=== PATIENT | male | born 1960 | race Caucasian/White ===

== ENCOUNTER 2022-07-18 12:11 | Outpatient (CLI) | payer BC, SELFPAY ==
[2022-07-18 10:01] LABS: Albumin* 4.9 g/dL (3.3-5.0)
[2022-07-18 10:02] LABS: Chloride* 105 mmol/L (96-114); Potassium* 4.5 mmol/L (3.6-5.1); Sodium* 139 mmol/L (135-149)
[2022-07-18 10:04] LABS: Alkaline Phosphatase* 92 U/L (40-150); Aspartate Amino Transferase* 41 U/L (12-35); Carbon Dioxide* 24 mmol/L (20-32); Cholesterol* 218 mg/dL (90-199); Creatinine* 0.8 mg/dL (0.5-1.5); Estimated Glomerular Filt Rate 99 ml/min
[2022-07-18 10:05] LABS: Alanine Aminotransferase* 36 U/L (4-50); Blood Urea Nitrogen* 16 mg/dL (7-30); Calcium* 9.2 mg/dL (8.4-10.6); Glucose* 98 mg/dL (60-115); HDL Cholesterol* 44 mg/dL (>=40); LDL Cholesterol Calculated 155 mg/dL (<100); Triglycerides* 94 mg/dL (40-149)
[2022-07-18 10:34] LABS: PSA Screen* 3.29 ng/mL (0.10-4.00)
== END 2022-07-18 12:12 | disposition home or self-care (01) ==
PROVIDERS: PCP Internal Medicine; Visit Provider Internal Medicine
DX: Z13.6 Encounter for screening for cardiovascular disorders (principal); Z12.5 Encounter for screening for malignant neoplasm of prostate
CPT/HCPCS: 80053; 80061; 84153

== ENCOUNTER 2023-10-04 09:00 | Outpatient (CLI) | payer OTHER, SELFPAY ==
--- OUTSIDE RECORDS SUMMARY | 2023-10-07 07:19 | XMS_ITS | Clinical Summary ---
Author Name Unknown Organization [facility] Address [place], [place] [address] Care Team Providers Care Opal Polisher Name Role Phone Unknown, Doctor Primary Care Provider Unavailabl e Allergies No known active allergies Medications Medication Sig Dispensed Refills Start Date End Date Status omeprazole (PRILOSEC) 20 mg Delayed-Release capsule TAKE 1 CAPSULE BY MOUTH TWICE DAILY FOR GERD 0 06/06/2023 Active NIFEdipine ER (ADALAT CC) 30 mg extended-Release tablet Take 30 mg by mouth. 0 06/17/2023 Active predniSONE (DELTASONE) 20 mg tablet Take 40 mg by mouth once daily. 0 07/26/2023 Active Encounters Date Type Department Care Team Description 08/09/2023 4:35 PM CUTTER AND EDGE TRIMMER Office Visit [facility] [address] [place] [address] aFustino Lakhani MD Employment Physical (63 year old male) 08/09/2023 Travel from Last 3 Months Immunizations Name Administration Dates Next Due Tdap 11/29/2008 Social History Tobacco Use Types Packs/Day Years Used Date Smoking Tobacco: Former Smokeless Tobacco: Former Tobacco Cessation:Counseling Given: Yes Alcohol Use Standard Drinks/Week Comments Not Currently 0 (1 standard drink = 0.6 oz pur e alcohol) Social Connections Answer Date Recorded Frequency of Communication with Friends and Fami ly Not on file 08/09/2023 Sex and Gender Information Value Date Recorded Sex Assigned at Not on file Gender Identity Not on file Sexual Orientation Not on file Obstetrics History Last Filed Vital Signs Vital Sign Reading Time Taken Comments Blood Pressure 137/78 08/09/2023 4:55 PM CUTTER AND EDGE TRIMMER Pulse 88 08/09/2023 4:46 PM CUTTER AND EDGE TRIMMER Temperature 36.3 ??C (97.4 ??F) 11/29/2008 1 1:53 AM CDT Respiratory Rate - - Oxygen Saturation 98% 08/09/2023 4:46 PM CUTTER AND EDGE TRIMMER Inhaled Oxygen Concentration - - Weight 94.8 kg (208 lb 14.4 oz) 08/09/2023 4:46 PM CUTTER AND EDGE TRIMMER Height 169 cm (5' 6.54) 08/09/2023 4:46 PM CUTTER AND EDGE TRIMMER Body Mass Index 33.18 08/09/2023 4:46 PM CUTTER AND EDGE TRIMMER Plan of Treatment Health Maintenance Due Date Last Done Comments COVID-19 vaccine series (#1) 1959 Depression screening for age 12+ 1971 HIV for age 15-65 1974 Hepatitis C screening for ag e 18-79 1977 Colonoscopy through age 75 2004 Lipids for age 45-75 2004 Zoster (shingles) series for age 50+ (1 of 2) 2009 Tetanus booster 11/29/2018 11/29/2008 Influenza for age 50-64 05/19/2023 BMI (ht and wt on same day) for age 18+ 08/09/2024 08/09/2023 Tdap Completed 11/29/2008 Pneumococcal series for age 6-64 Aged Out No longer eligible based on patient's age to complete this topic Procedures Procedure Name Priority Date/Time Associated Diagnosis Comments [facility] UA DIP Routine 08/09/2023 4:40 PM CUTTER AND EDGE TRIMMER Encounter for examination required by Department of Transportation (DOT) from Last 3 Months Results * [facility] UA DIP (08/09/2023 4:40 PM CUTTER AND EDGE TRIMMER) COLOR Yellow Yellow Color 08/09/2023 4:53 PM CUTTER AND EDGE TRIMMER [facility] CLARITY Clear Clear Clarity 08/09/2023 4:53 PM CUTTER AND EDGE TRIMMER [facility] SPECIFIC GRAVITY,URINE 1.015 1.010, 1.015, 1.020, 1.025 08/09/2023 4:53 PM CUTTER AND EDGE TRIMMER [facility] PH,URINE 5.5 6.0, 7.0, 8.0, 5.5, 6.5, 7.5, 8.5 08/09/2023 4:53 PM CUTTER AND EDGE TRIMMER [facility] UROBILINOGEN, QUALITATIVE Normal Normal EU/dl 08/09/2023 4:53 PM CUTTER AND EDGE TRIMMER [facility] PROTEIN, URINE Negative Negative mg/dL 08/09/2023 4:53 PM CUTTER AND EDGE TRIMMER [facility] GLUCOSE, URINE Negative Negative mg/dL 08/09/2023 4:53 PM CUTTER AND EDGE TRIMMER [facility] KETONES,URINE Negative Negative mg/dL 08/09/2023 4:53 PM CUTTER AND EDGE TRIMMER [facility] BILIRUBIN,URI NE Negative Negative 08/09/2023 4:53 PM CUTTER AND EDGE TRIMMER [facility] OCCULT BLOOD,URINE Negative Negative 08/09/2023 4:53 PM CUTTER AND EDGE TRIMMER [facility] NITRITE Negative Negative 08/09/2023 4:53 PM CUTTER AND EDGE TRIMMER [facility] LEUKOCYTE ESTERASE Negative Negative 08/09/2023 4:53 PM CUTTER AND EDGE TRIMMER [facility] Urine URINE SPECIMEN / Unknown Non-Blood / Unknown 08/09/2023 4:40 PM CUTTER AND EDGE TRIMMER 08/09/2023 4:48 PM CUTTER AND EDGE TRIMMER Faustino Lakhani MD LABORATORY [facility] [address] [place] [address], from Last 3 Months Care Teams Opal Polisher Relationship Specialty Start Date End Date Unknown, Doctor . PCP - General 03/17/06
--- OUTSIDE RECORDS SUMMARY | 2023-10-07 07:19 | XMS_ITS | Clinical Summary ---
Author Name Unknown Organization [facility] Address [address] [place] [address] Care Team Providers Care Chest Pain Coordinator Name Role Phone Donovan Mohan MD Primary Care Provider [phone]- [phone] Source Comments You are receiving this document as you are listed as the primary care provider,follow-up provider, or the patient has been referred to you for consultation.This is in compliance with the Medicare and[facility] EHR Incentive Program,which states Providers who transition their patient to another setting of careor provider of care or refers their patient to another provider of care shouldprovide summary care record for each transition of care or referral. [facility] Allergies No known active allergies Medications Medication Sig Dispensed Refills Start Date End Date Status amLODIPine (NORVASC) 5 MG tablet Take 5 mg by mouth daily. 0 06/17/2021 Active omeprazole (PRILOSEC) 20 MG capsule Take 20 mg by mouth two times a day. 0 06/17/2021 Active Active Problems No known active problems Social History Tobacco Use Types Packs/Day Years Used Date Smoking Tobacco: Never Assessed Sex and Gender Information Value Date Recorded Sex Assigned at Not on file Gender Identity Not on file Sexual Orientation Not on file Plan of Treatment Health Maintenance Due Date Last Done Comments Colon Cancer Screening Plan Due 1959 Hep C Screening (Preventive Services) 1959 PSA Screening Discussion 1959 COVID-19 Vaccine (#1) 1959 HIV Screening (Preventive Services) 1975 Adult Preventive Visit 1977 Cholesterol 1994 Zoster/Shingles (1 of 2) 2009 DTaP/Tdap/Td (2 - Tdap) 11/29/2018 11/29/2008 Influenza (#1) 2023 HepA Aged Out No longer eligi ble based on patient's age to complete this topic HepB Aged Out No longer eligi ble based on patient's age to complete this topic Hib Aged Out No longer eligi ble based on patient's age to complete this topic IPV (Polio) Aged Out No longer eligi ble based on patient's age to complete this topic MCV4 Aged Out No longer eligi ble based on patient's age to complete this topic Pneumococcal Aged Out No longer eligi ble based on patient's age to complete this topic Care Teams Chest Pain Coordinator Relationship Specialty Start Date End Date Donovan Mohan MD [address] [place] [address] PCP - General 06/24/21
== END 2023-10-04 09:01 | disposition home or self-care (01) ==
LOC: NFLDREF 10-07 07:17
PROVIDERS: PCP Internal Medicine; Referring Provider Internal Medicine; Visit Provider Internal Medicine
DX: Z00.00 Encounter for general adult medical examination without abnormal findings (principal); M54.12 Radiculopathy, cervical region; I10 Essential (primary) hypertension; Z13.220 Encounter for screening for lipoid disorders; Z12.5 Encounter for screening for malignant neoplasm of prostate; Z13.6 Encounter for screening for cardiovascular disorders
CPT/HCPCS: 80053; 80061; G0103

== ENCOUNTER 2023-10-18 07:55 | Outpatient (CLI) | payer OTHER, SELFPAY ==
--- OUTSIDE RECORDS SUMMARY | 2023-10-18 08:03 | XMS_ITS | Clinical Summary ---
Author Name Unknown Organization [facility] Address [place], [place] [address] Care Team Providers Care Pony Trimmer Name Role Phone Unknown, Doctor Primary Care [...] Department Care Team Description 08/09/2023 4:35 PM RN ACUTE CARE Office Visit [facility] [address] [place] [address] Faustino Lakhani MD Employment Physical (63 year old [...] Comments Blood Pressure 137/78 08/09/2023 4:55 PM RN ACUTE CARE Pulse 88 08/09/2023 4:46 PM RN ACUTE CARE Temperature 36.3 ??C (97.4 ??F) 11/29/2008 1 1:53 AM CDT Respiratory Rate - - Oxygen Saturation 98% 08/09/2023 4:46 PM RN ACUTE CARE Inhaled Oxygen Concentration - - Weight 94.8 kg (208 lb 14.4 oz) 08/09/2023 4:46 PM RN ACUTE CARE Height 169 cm (5' 6.54) 08/09/2023 4:46 PM RN ACUTE CARE Body Mass Index 33.18 08/09/2023 4:46 PM RN ACUTE CARE Plan of Treatment Health Maintenance Due Date [...] DOT UA DIP Routine 08/09/2023 4:40 PM RN ACUTE CARE Encounter for examination required by Department of Transportation (DOT) from Last 3 Months Results * [facility] UA DIP (08/09/2023 4:40 PM RN ACUTE CARE) COLOR Yellow Yellow Color 08/09/2023 4:53 PM RN ACUTE CARE [facility] CLARITY Clear Clear Clarity 08/09/2023 4:53 PM RN ACUTE CARE [facility] SPECIFIC GRAVITY,URINE 1.015 1.010, 1.015, 1.020, 1.025 08/09/2023 4:53 PM RN ACUTE CARE [facility] PH,URINE 5.5 6.0, 7.0, 8.0, 5.5, 6.5, 7.5, 8.5 08/09/2023 4:53 PM RN ACUTE CARE [facility] UROBILINOGEN, QUALITATIVE Normal Normal EU/dl 08/09/2023 4:53 PM RN ACUTE CARE [facility] PROTEIN, URINE Negative Negative mg/dL 08/09/2023 4:53 PM RN ACUTE CARE [facility] GLUCOSE, URINE Negative Negative mg/dL 08/09/2023 4:53 PM RN ACUTE CARE [facility] KETONES,URINE Negative Negative mg/dL 08/09/2023 4:53 PM RN ACUTE CARE [facility] BILIRUBIN,URI NE Negative Negative 08/09/2023 4:53 PM RN ACUTE CARE [facility] OCCULT BLOOD,URINE Negative Negative 08/09/2023 4:53 PM RN ACUTE CARE [facility] NITRITE Negative Negative 08/09/2023 4:53 PM RN ACUTE CARE [facility] LEUKOCYTE ESTERASE Negative Negative 08/09/2023 4:53 PM RN ACUTE CARE [facility] Urine URINE SPECIMEN / Unknown Non-Blood / Unknown 08/09/2023 4:40 PM RN ACUTE CARE 08/09/2023 4:48 PM RN ACUTE CARE Faustino Lakhani MD LABORATORY [facility] [address] [place] [address], from Last 3 Months Care Teams Pony Trimmer Relationship Specialty Start Date End Date Unknown, Doctor . PCP - General 03/17/06
--- OUTSIDE RECORDS SUMMARY | 2023-10-18 08:03 | XMS_ITS | Clinical Summary ---
Author Name Unknown Organization [facility] Address [address] [place] [address] Care Team Providers Care Contact Lens Polisher Name Role Phone Donovan Mohan MD Primary Care Provider [phone]- [phone] Source Comments You are receiving this document as you are listed as the primary care provider,follow-up provider, or the patient has been referred to you for consultation.This is in compliance with the Medicare and[facility] EHR Incentive Program,which states Providers who transition [...] age to complete this topic Care Teams Contact Lens Polisher Relationship Specialty Start Date End Date Donovan Mohan MD [address] [place] [address] PCP - General 06/24/21
--- NOTE | 2023-10-18 08:15 | CRLHL7_ITS ---
For Patients: As a result of the Century Cures Act, medical imaging exams and procedure reports are released immediately into your electronic medical record. You may view this report before your referring provider. If you have questions, please contact your health care provider. INDICATION : Cervical radiculopathy. TECHNIQUE : Cervical spine MRI without contrast. The following sequences were obtained: Sagittal T1 and T2 weighted sequences. Axial T2-weighted and gradient sequences. COMPARISON: COMPARISONNeck CT from 03/06/2011. FINDINGS: Normal cervical lordotic curve. No recent compression fracture or marrow replacing process. Posterior fossa structures are normal. Cervical cord signal is normal. No extraspinal soft tissue abnormalities. Discs/Endplates: Cervical and upper thoracic disc heights are maintained. Findings at individual levels as follows: Craniocervical junction: Alignment is maintained. C2-C3: Left uncovertebral arthrosis contributes to mild left neural foraminal stenosis. No right neural foraminal stenosis or spinal canal stenosis. C3-C4: Shallow disc osteophyte complex flattens the thecal sac with overall mild spinal canal stenosis. Bilateral uncovertebral arthrosis with moderate bilateral neural foraminal stenosis. C4-C5: Shallow disc osteophyte complex flattens the thecal sac with overall mild spinal canal stenosis. Bilateral uncovertebral arthrosis with moderate to moderately advanced left neural foraminal stenosis. Impingement of the exiting left C5 nerve root. C5-C6: Shallow disc osteophyte complex abuts the ventral cord and contributes to mild spinal canal stenosis. Bilateral uncovertebral arthrosis and left facet arthrosis with moderate bilateral neural foraminal stenosis, greater on the left. C6-C7: A left central protrusion minimally flattens the ventral cord. Mild spinal canal stenosis. Bilateral uncovertebral arthrosis with mild left and [id number] right neural foraminal stenosis. C7-T1: Tiny central protrusion flattens the thecal sac. No spinal canal or neural foraminal stenosis. T1-2 and T2-3: No spinal canal or neural foraminal stenosis. IMPRESSION: 1. Multilevel cervical neural foraminal stenosis, moderately advanced at C4-5 on the left, moderate at C3-4 bilaterally/C5-6 bilaterally, and low-grade elsewhere. Impingement of the left C5 nerve root. 2. No high-grade spinal canal stenosis. Multilevel mild spinal canal narrowing at C3-4, C4-5, C5-6 and C6-7. Minimal ventral cord flattening at the C6-7 level. 3. Cervical cord signal is normal. No intradural pathology. Dictated by Bogdan Logan MD @ 10/18/2023 11:41:35 AM (Electronically Signed)
== END 2023-10-18 07:56 | disposition home or self-care (01) ==
LOC: MRI 07:56
PROVIDERS: PCP Internal Medicine; Visit Provider Internal Medicine
DX: M54.12 Radiculopathy, cervical region (principal); M48.02 Spinal stenosis, cervical region
CPT/HCPCS: 72141

== ENCOUNTER 2025-01-28 08:53 | Outpatient (CLI) | payer OTHER, SELFPAY | END 2025-01-28 08:54 | disposition home or self-care (01) | PROVIDERS: PCP Internal Medicine; Visit Provider Internal Medicine | DX: I10 Essential (primary) hypertension (principal); Z12.5 Encounter for screening for malignant neoplasm of prostate; Z13.6 Encounter for screening for cardiovascular disorders | CPT/HCPCS: 80053; 80061; G0103 ==

== ENCOUNTER 2025-03-11 12:21 | Outpatient (CLI) | payer OTHER, SELFPAY ==
--- NOTE | 2025-03-11 13:51 | P.ANES_ITS ---
Anesthesia Charges Start Date/Time Anesthesia Start Date: 03/11/25 Anesthesia Start Time: 13:17 Stop Date/Time Anesthesia Stop Date: 03/11/25 Anesthesia Stop Time: 13:52 Coding CPT Codes CPT Codes: SHIRLENE LWR INTST NDSC NOS - 28379 ([id number]) P2 - PATIENT W/MILD SYST DISEASE, QK - APPAREL PATTERN MAKER 2-4 CNCRNT ANES PROC, QX - GENERAL TECHNICIAN SVC W/ MD MED DIRECTION
--- NOTE | 2025-03-11 13:51 | W.ANESCHARGE ---
Anesthesia Charges Start Date/Time Anesthesia Start Date: 03/11/25 Anesthesia Start Time: 13:17 Stop Date/Time Anesthesia Stop Date: 03/11/25 Anesthesia Stop Time: 13:52 Coding CPT Codes CPT Codes: SHIRLENE LWR INTST NDSC NOS - 92155 ([id number]) P2 - PATIENT W/MILD SYST DISEASE, QK - TETRYL SCREEN OPERATOR 2-4 CNCRNT ANES PROC, QX - LICENSED EMBALMER SVC W/ MD MED DIRECTION
--- NOTE | 2025-03-11 15:14 | P.ANES_ITS ---
Anesthesia Charges Start Date/Time Anesthesia Start Date: 03/11/25 Anesthesia Start Time: 13:17 Stop Date/Time Anesthesia Stop Date: 03/11/25 Anesthesia Stop Time: 13:52 Coding CPT Codes CPT Codes: SHIRLENE LWR INTST NDSC NOS - 73231 ([id number]) QK - AGRONOMY PROFESSOR 2-4 CNCRNT SHIRLENE PROC, QX - SPECIAL SERVICE REPRESENTATIVE SVC W/ MD MED DIRECTION, P2 - PATIENT W/MILD SYST DISEASE
--- NOTE | 2025-03-11 15:14 | W.ANESCHARGE ---
Anesthesia Charges Start Date/Time Anesthesia Start Date: 03/11/25 Anesthesia Start Time: 13:17 Stop Date/Time Anesthesia Stop Date: 03/11/25 Anesthesia Stop Time: 13:52 Coding CPT Codes CPT Codes: SHIRLENE LWR INTST NDSC NOS - 63121 ([id number]) QK - TELEMARKETER SUPERVISOR 2-4 CNCRNT SHIRLENE PROC, QX - ELEVATOR REPAIRER APPRENTICE SVC W/ MD MED DIRECTION, P2 - PATIENT W/MILD SYST DISEASE
--- OUTSIDE RECORDS SUMMARY | 2025-03-12 00:55 | XMS_ITS | Clinical Summary ---
Author Organization [facility] Address [address] [address] Care Team Providers Care Training Analyst Name Role Phone Donovan Mohan MD Primary Care Provider [phone]- [phone] Source Comments You are receiving this document as you are listed as the primary care provider,follow-up provider, or the patient has been referred to you for consultation.This is in compliance with the Medicare and[facility] EHR Incentive Program,which states Providers who transition their patient to another setting of careor provider of care or refers their patient to another provider of care shouldprovide summary care record for each transition of care or referral. [facility] Allergies No known active allergies Medications amLODIPine (NORVASC) 5 MG tablet Take 5 mg by mouth daily. 06/17/2021 Active omeprazole (PRILOSEC) 20 MG capsule Take 20 mg by mouth two times a day. 06/17/2021 Active Active Problems No known active problems Social History Tobacco Use Types Packs/Day Years Used Date Smoking Tobacco: Never Assessed Sex and Gender Information Value Date Recorded Sex Assigned at Not on file Legal Sex Male 12:15 PM CDT Gender Identity Not on file Sexual Orientation Not on file Plan of Treatment Health Maintenance Due Date Last Done Comments Colon Cancer Screening Plan Due 1959 Hep C Screening (Preventive Services) 1959 PSA Screening Discussion 1959 Adult Preventive Visit 1977 Cholesterol 1994 Pneumococcal Vaccine 50+ Yrs (1 of 1 - PCV) 2009 Zoster/Shingles Vaccine (1 of 2) 2009 DTaP/Tdap/Td Vaccine (2 - Tdap) 11/29/2018 9 COVID-19 Vaccine (1 - 2023-2 5 season) 2024 Influenza Vaccine (Season Ended) 2025 RSV Vaccine (1 - 1-dose 75+ series) 2034 HepA Vaccine Aged Out No longer eligi ble based on patient's age to complete this topic HepB Vaccine Aged Out No longer eligi ble based on patient's age to complete this topic Hib Vaccine Aged Out No longer eligi ble based on patient's age to complete this topic IPV (Polio) Vaccine Aged Out No longe r eligible based on patient's age to complete this topic MCV4 Vaccine Aged Out No longer eligi ble based on patient's age to complete this topic Meningococcal B Vaccine Aged Out No l onger eligible based on patient's age to complete this topic Insurance [employer] OUT OF STATE Care Teams Training Analyst Relationship Specialty Start Date End Date Donovan Mohan MD [address] [place] [address] PCP - General 06/24/21
--- OUTSIDE RECORDS SUMMARY | 2025-03-12 00:55 | XMS_ITS | Clinical Summary ---
Author Organization [facility] Address [address] [place] [address] Care Team Providers Care Dipper Machine Operator Name Role Phone Unknown, Doctor Primary Care Provider Unavailabl e Allergies No known active allergies Medications omeprazole (PRILOSEC) 20 mg Delayed-Release capsule TAKE 1 CAPSULE BY MOUTH TWICE DAILY FOR GERD 06/06/2023 Active NIFEdipine ER (ADALAT CC) 30 mg extended-Releas e tablet Take 30 mg by mouth. 06/17/2023 Active predniSONE (DELTASONE) 20 mg tablet Take 40 mg by mouth once daily. 07/26/2023 Active Immunizations Immunization Administration Dates Next Due Tdap 11/29/2008 Social [...] at Not on file Legal Sex Male 6:08 AM LOCOMOTIVE FIRER/FIREMAN Gender Identity Not on file Sexual Orientation Not on file Obstetrics History Last Filed Vital Signs Vital Sign Reading Time Taken Comments Blood Pressure 137/78 08/09/2023 4:55 PM LOCOMOTIVE FIRER/FIREMAN Pulse 88 08/09/2023 4:46 PM LOCOMOTIVE FIRER/FIREMAN Temperature 36.3 C (97.4 F) 11/29/2008 11:53 AM CDT Respiratory Rate - - Oxygen Saturation 98% 08/09/2023 4:46 PM LOCOMOTIVE FIRER/FIREMAN Inhaled Oxygen Concentration - - Weight 94.8 kg (208 lb 14.4 oz) 08/09/2023 4:46 PM LOCOMOTIVE FIRER/FIREMAN Height 169 cm (5' 6.54) 08/09/2023 4:46 PM LOCOMOTIVE FIRER/FIREMAN Body Mass Index 33.18 08/09/2023 4:46 PM LOCOMOTIVE FIRER/FIREMAN Plan of Treatment Health Maintenance Due Date Last Done Comments Depression screening for age 12+ 1971 HIV for age 15-65 1974 Hepatitis C screening for ag e 18-79 1977 Colonoscopy through age 75 2004 Lipids for age 45-75 2004 Pneumococcal series for age 50+ (1 of 1 - PCV) 2009 Zoster (shingles) series for age 50+ (1 of 2) 2009 Tetanus booster 11/29/2018 11/29/2008 COVID-19 vaccine series ( - season) 2024 BMI (ht and wt on same day) for age 18+ 08/09/2024 08/09/2023 Influenza Vaccine (Season Ended) 2025 RSV vaccine for adults or (1 - 1-dose 75+ series) 2034 Tdap Completed 11/29/2008 Hepatitis B series for 19+ Aged Out N o longer eligible based on patient's age to complete this topic Insurance [facility] Care Teams Dipper Machine Operator Relationship Specialty Start Date End Date Unknown, Doctor . PCP - General 03/17/06
--- OUTSIDE RECORDS SUMMARY | 2025-03-12 00:55 | XMS_ITS | Clinical Summary ---
Author Organization [facility] Address [address] [place] [address] Care Team Providers Care Metallographic Technician Name Role Phone Elsewhere, Pcp Primary Care Provider Unavailabl e Source Comments Patient records contain information from all sites at [facility]. For routine questions regarding patient records, call [phone] during business hours, M-F 8:00 AM - 5:00 PM Central Time. Record requests for emergency care only can be directed to [phone] at any time.[facility] Allergies No known active allergies Medications * This document contains information received from the source organization and may not represent a complete record from that organization. omeprazole (PriLOSEC) [address] capsule Take 20 mg by mouth every morning before breakfast. 06/17/2021 Active NIFEdipine XL (PROCARDIA XL) 30 mg 24 hr tablet Take 30 mg by mouth daily. 10/31/2023 Active DME CPAP DME Order Active Immunizations Immunization Administration Dates Next Due DTaP (Infanrix, [employer]) 11/29/2008 Family History Medical History Relation Name Comments Alcohol abuse Father Dakotah Drug abuse Father Dakotah Pancreatic cancer Father Dakotah 1987 age 45 Suicide Attempts Father's Brother Lenny Coronary artery disease Maternal Grandfather Lenny Rheum arthritis Maternal Grandmother Kathya Stroke Maternal Grandmother Kathya Diabetes Mother Lakesha Lung cancer Mother's Brother 1 Lenny Alcohol abuse Mother's Brother 2 Edson Other cancer Mother's Brother 2 Edson Throat Alcohol abuse Mother's Brother 3 Attila Alcohol abuse Mother's Brother 4 Ron Breast cancer Mother's Sister 1 Princess Coronary artery disease Mother's Sister 2 Gretta Diabetes Mother's Sister 2 Gretta Rheum arthritis Mother's Sister 2 Gretta Alcohol abuse Mother's Sister 3 Omayra Coronary artery disease Mother's Sister 3 Omayra Diabetes Mother's Sister 3 Omayra Stroke Paternal Grandfather Lenny Relation Name Status Comments Father [place]otah Father's Brother Lenny Maternal Grandfather Lenny Maternal Grandmother Kathya Mother Lakesha Mother's Brother 1 Lenny Mother's Brother 2 Edson Mother's Brother 3 Attila Mother's Brother 4 Ron Mother's Sister 1 Princess Mother's Sister 2 Gretta Mother's Sister 3 Omarya Paternal Grandfather Lenny Social History Tobacco Use Types Packs/Day Years Used Date Smoking Tobacco: Former Cigarettes 0 09/18/1974 - 09/18/1989 Cigars Smokeless Tobacco: Never Alcohol Use Standard Drinks/Week Comments Yes 6 (1 standard drink = 0.6 oz pur e alcohol) [facility] Utilities Answer Date Recorded In the past 12 months has [employer] Stroke, gas, oil, or water [employer] threatened to shut off services in your home? No 12/20/2023 Hunger Vital Sign Answer Date Recorded Within the past 12 months, y ou worried that your food would run out before you got the money to buy more. Never true 12/20/19 24 Within the past 12 months, t he food you bought just didn't last and you didn't have money to get more. Never true 12/20/2023 PRAPARE - Transportation Answer Date Re corded In the past 12 months, has l ack of transportation kept you from medical appointments or from getting medications? No 11/2023 In the past 12 months, has l ack of transportation kept you from meetings, work, or from getting things needed for daily living? No 12/20/2023 Housing Stability Answer Date Recorded What is your living situation today? I have a [facility] place to live 12/20/2023 Sex and Gender Information Value Date Recorded Sex Assigned at Male 12/14/2023 10:04 AM CDT Legal Sex Male 9:22 AM [employer] Gender Identity Male 12/14/2023 10:04 AM CDT Sexual Orientation Straight 12/14/2023 10 :04 AM CDT Last Filed Vital Signs Vital Sign Reading Time Taken Comments Blood Pressure 160/80 12/18/2023 1:49 PM CDT Pulse 80 12/18/2023 1:49 PM CDT Temperature - - Respiratory Rate - - Oxygen Saturation - - Inhaled Oxygen Concentration - - Weight 99.6 kg (219 lb 11 oz) 12/18/2023 1:49 PM CDT Height 171.9 cm (5' 7.68) 12/18/2023 1:49 PM CD T Body Mass Index 33.72 12/18/2023 1:49 PM CDT Plan of Treatment Health Maintenance Due Date Last Done Comments Abdominal Aortic Aneurysm (AAA) Screen 1959 CT Colonography 1959 Cologuard 1959 FIT 1959 Fasting Glucose for Diabetes Screening 1959 HIV Screening 1959 Hepatitis C Screening 1959 Pneumococcal vaccine (50+ years) (1 of 1 - PCV) 2009 Zoster Vaccines (1 of 2) 2009 Colonoscopy 09/18/2018 09/18/2008 (Perf ormed elsewhere) Colorectal Cancer Screening 09/18/2018 DTaP,Tdap,and Td Vaccines (2 - Tdap) 11/29/2018 11/29/2008, 11/29/2008 Office Visit for Blood Pressure Check / Re-check 03/18/2024 12/18/2023 COVID-19 Vaccine (1 - 2023-2 5 season) 2024 Influenza Vaccine (#1) 2024 Depression Screening (Annual PHQ-2) 09/18/2024 Fall Risk Screen (Annual) 09/18/2024 IPV Vaccines Aged Out No longer eligi ble based on patient's age to complete this topic [facility] Care Teams Metallographic Technician Relationship Specialty Start Date End Date Elsewhere, Pcp PCP - General Internal Medicine 12/25/23
== END 2025-03-11 12:22 | disposition home or self-care (01) ==
LOC: OP CLINIC 12:21
PROVIDERS: PCP Internal Medicine; Visit Provider Internal Medicine
DX: Z12.11 Encounter for screening for malignant neoplasm of colon (principal); Z86.0100 Personal history of colon polyps, unspecified; K64.8 Other hemorrhoids; D12.2 Benign neoplasm of ascending colon
CPT/HCPCS: 00811; 00812; 45380; J2704